=== PATIENT | female | born 1970 | race Hispanic/Latino ===

== ENCOUNTER 2021-09-27 00:12 | Emergency (ER) | payer OTHER, SELFPAY ==
[2021-09-27 04:33] LABS: #Basophils 0.1 10x3/uL (0.0-0.2); #Eosinphils 0.1 10x3/uL (0.0-0.5); #Monocytes 0.5 10x3/uL (0.0-1.1); #Neutrophils 5.7 10x3/uL (1.5-8.4); %Basophils 0.7 % (0.0-2.0); %Eosinophils 1.5 % (0.0-6.0); %Lymphocytes 31.6 % (18.0-47.0); %Monocytes 5.5 % (0.0-10.0); %Neutrophils 60.4 % (40.0-75.0); ALT (SGPT) 17 U/L (8-55); AST (SGOT) 18 U/L (5-34); Albumin 3.7 g/dL (3.5-5.0); Alkaline Phosphatase 200 U/L (40-110); Anion Gap 14 mmol/L (10-20); BUN (Urea Nitrogen) 33 mg/dL (9.8-20.1); Bilirubin, Total 0.2 mg/dL (0.2-1.2); Calc. Creatinine Clearance 0 mL/min (70-130); Calcium 8.8 mg/dL (7.8-10.44); Carbon Dioxide 22 mmol/L (22-29); Chloride 102 mmol/L (98-107); Globulin 3.4 g/dL (2.4-3.5); Glucose 347 mg/dL (70-105); Hemoglobin 11.1 g/dL (12.0-15.5); Mean Corpuscular Hemoglobin 26.7 pg (27.0-33.0); Mean Corpuscular Volume 78.4 fl (81.6-98.3); Mean Platelet Volume 9.3 fl (7.4-10.4); Platelet Count 365 10x3/uL (150-450); Potassium 4.2 mmol/L (3.5-5.1); Protein, Total 7.1 g/dL (6.0-8.3); RBC Distribution Width 12.2 % (11.5-14.5); Red Blood Cell (RBC) Count 4.16 10x6/uL (3.90-5.03); Sodium 134 mmol/L (136-145); White Blood Cell (WBC) Count 9.4 10x3/uL (3.5-10.5)
== END 2021-09-27 02:16 | disposition home or self-care (01) ==
LOC: CSHERS 00:12
DX: L03.031 Cellulitis of right toe (principal); E11.9 Type 2 diabetes mellitus without complications
CPT/HCPCS: 36415; 80053; 85025

== ENCOUNTER 2022-02-05 20:12 | Emergency (ER) | payer OTHER ==
[2022-02-05 21:42] LABS: #Basophils 0.1 10x3/uL (0.0-0.2); #Eosinphils 0.1 10x3/uL (0.0-0.5); #Monocytes 0.8 10x3/uL (0.0-1.1); #Neutrophils 10.3 10x3/uL (1.5-8.4); %Basophils 0.6 % (0.0-2.0); %Eosinophils 0.9 % (0.0-6.0); %Lymphocytes 17.6 % (18.0-47.0); %Monocytes 5.8 % (0.0-10.0); %Neutrophils 73.8 % (40.0-75.0); Mean Corpuscular Volume 77.3 fl (81.6-98.3); Mean Platelet Volume 8.8 fl (7.4-10.4); Platelet Count 350 10x3/uL (150-450); RBC Distribution Width 12.4 % (11.5-14.5); Red Blood Cell (RBC) Count 4.44 10x6/uL (3.90-5.03); White Blood Cell (WBC) Count 13.9 10x3/uL (3.5-10.5)
[2022-02-05 22:03] LABS: ALT (SGPT) 18 U/L (8-55); AST (SGOT) 16 U/L (5-34); Albumin 3.8 g/dL (3.5-5.0); Alkaline Phosphatase 172 U/L (40-110); Anion Gap 16 mmol/L (10-20); BUN (Urea Nitrogen) 24 mg/dL (9.8-20.1); Bilirubin, Total 0.3 mg/dL (0.2-1.2); Calc. Creatinine Clearance 0 mL/min (70-130); Calcium 9.5 mg/dL (7.8-10.44); Carbon Dioxide 23 mmol/L (22-29); Chloride 106 mmol/L (98-107); Globulin 3.5 g/dL (2.4-3.5); Lipase 32 U/L (8-78); Potassium 3.2 mmol/L (3.5-5.1); Protein, Total 7.3 g/dL (6.0-8.3); Sodium 142 mmol/L (136-145)
[2022-02-05 22:04] LABS: Glucose 59 mg/dL (70-105)
[2022-02-05] MEDS ORDERED: Ondansetron PF 4 MG/2 ML Vial ONE (22:09)
[2022-02-05] MEDS ORDERED: Morphine 4 MG/ML VIAL ONE (22:28)
[2022-02-05] MEDS ORDERED: Potassium Chloride 20 MEQ TAB ONE (23:37)
[2022-02-06 00:18] LABS: Lactic Acid 2.2 mmol/L (0.5-2.2)
[2022-02-06 21:44] LABS: SARS-CoV-2 PCR by NAA Not Detected (NotDetected)
== END 2022-02-06 00:54 | disposition home or self-care (01) ==
LOC: CSHERS 20:12
DX: E87.6 Hypokalemia (principal); G62.9 Polyneuropathy, unspecified; I10 Essential (primary) hypertension; E11.9 Type 2 diabetes mellitus without complications; Z20.822 Contact with and (suspected) exposure to COVID-19
CPT/HCPCS: 36415; 36416; 80053; 83605; 83690; 84484; 85025; 87804; 93005; 96374; 96375; J2270; J2405; U0003; U0005